=== PATIENT | female | born 1975 | race Caucasian/White ===

== ENCOUNTER → 2018-09-05 | Outpatient (CLI) | payer OTHER ==
--- NOTE | 2018-09-05 15:52 | KCIC ---
Bilateral digital screening mammograms with 3-D tomosynthesis: Reason for examination: Routine baseline screening. Bilateral mammograms in CC and oblique projections were obtained with 2-D imaging and 3-D tomosynthesis imaging on a Siemens Inspiration unit and reviewed on the workstation. Interpretation was made with the benefit of CAD. The skin and nipples show no abnormalities. No abnormal axillary lymph nodes are seen. The breast parenchyma shows scattered fatty and fibroglandular density. (Breast density: Category B.) There is a small 8 mm nodular parenchymal density in the posterior central 5:00 C position 11 cm deep to the nipple of the right breast. Recommend further evaluation with ultrasound. There are no other dominant masses, suspicious calcifications or architectural distortion. Impression: 8 mm nodule in the 5:00 C position posteriorly in the right breast 11 cm deep to the nipple. Recommend further evaluation with ultrasound. BI-RADS Category 0: Incomplete: Need additional imaging evaluation. "Our facility is accredited by the [employer] Mammography [employer]." This patient's information has been entered into a reminder system for the patient to be notified with the results of her examination and a target date for the next mammogram. Electronically signed by: Lizzeth Mccloud MD (09/05/2018 3:49 PM) [id number]
== END | disposition home or self-care (01) ==
LOC: KCIC MAMMO 13:47
PROVIDERS: ATTEND Nurse Practitioner Gerontology
DX: Z12.31 Encounter for screening mammogram for malignant neoplasm of breast (principal); N63.14 Unspecified lump in the right breast, lower inner quadrant
CPT/HCPCS: 77063; 77067

== ENCOUNTER → 2018-09-15 | Outpatient (CLI) | payer OTHER ==
--- NOTE | 2018-09-15 10:26 | KCIC ---
Right breast ultrasound: Reason for examination: Small parenchymal density on screening mammogram. Comparison is made to mammographic exam dated 09/05/2018. Ultrasound examination of the right breast an axilla was performed with attention to the area of mammographic concern in the lower inner quadrant of the breast posteriorly. In the 5:00 position adjacent to the chest wall and appearing to correspond to the area of clinical concern, there is a hypoechoic lesion with echogenic hilum which is consistent with a small intramammary lymph node. This appears to measure approximately 7 mm in greatest dimension. No other cystic or solid lesions are seen. No abnormal appearing lymph nodes are seen in the axilla. IMPRESSION: 7 mm hypoechoic nodule consistent with a small intramammary lymph node at the 5:00 position appears to correlate with the area of mammographic concern. No suspicious lesions are seen. Recommend reevaluation with mammograms and ultrasound in 6 months. BI-RADS Category 3: Probably Benign. "Our facility is accredited by the [employer] Mammography [employer]." This patient's information has been entered into a reminder system for the patient to be notified with the results of her examination and a target date for the next mammogram. Electronically signed by: Lizzeth Mccloud MD (09/15/2018 10:23 AM) [id number]
== END | disposition home or self-care (01) ==
LOC: KCIC US 08:52
PROVIDERS: ATTEND Nurse Practitioner Gerontology
DX: N63.14 Unspecified lump in the right breast, lower inner quadrant (principal); N64.89 Other specified disorders of breast
CPT/HCPCS: 76641